=== PATIENT | male | born 1950 | race American Indian/Alaskan Native ===

== ENCOUNTER 2017-05-01 12:38 | Inpatient (IN) | payer MEDICARE ==
[2017-05-01 13:08] LABS: Basophils % (Auto) 0.6 % (0.0-1.8); Eosinophils % (Auto) 0.8 % (0.0-4.3); Mean Corpuscular HGB Conc 32 % (32-34); Mean Corpuscular Hemoglobin 28 pg (28-32); Mean Corpuscular Volume 88 fl (84-94); Platelet Count 190 K/mm3 (140-440); Red Blood Count 5.34 M/mm3 (3.65-5.03); Red Cell Distribution Width 15.6 % (13.2-15.2); White Blood Count 6.3 K/mm3 (4.5-11.0)
[2017-05-01 13:28] LABS: Anion Gap 19 mmol/L; BUN/Creatinine Ratio 11.17; Blood Urea Nitrogen 19 mg/dL (9-20); Calcium 9.4 mg/dL (8.4-10.2); Carbon Dioxide 26 mmol/L (22-30); Chloride 100.1 mmol/L (98-107); Glucose 103 mg/dL (75-100); Potassium 3.6 mmol/L (3.6-5.0); Sodium 141 mmol/L (137-145)
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
--- NOTE | 2017-05-01 14:21 | History and Physical Report ---
History of Present Illness Chief complaint: My heart was beating real fast History of present illness: 67 YO Male with HTN, Nicotine Dependence, malnutrition presents to ED for evaluation. Pt states that he has been experiencing episodes of a fast heartbeat , and pain in hes chest for the past week. Pt states that his heart bests fast and is followed by pain. Pt states that pain is 6/10, midsubsternal, but mostly localized to the left side of his chest, with associated shortness of breath. Symptoms worse with activity. No specific alleviating factors. Patient denies NVD, Fever, Chills, Prolonged travel/immobility, individual/family history of DVT/PE, calf tenderness, leg edema, hemoptysis, BRBPR, Syncope, Vertigo, skin rashes, or recent ill contacts. Past History Past Medical History: hypertension, other (nicotine dependence) Past Surgical History: Other (chest surgery) Social history: , smoking. denies: alcohol abuse, prescription drug abuse Family history: hypertension Medications and Allergies Allergies Allergy/AdvReac Type Severity Reaction Status Date / Time No Known Allergies Allergy Verified 09/17/15 14:39 Home Medications Medication Instructions Recorded Confirmed Last Taken Type amLODIPine [Norvasc] 10 mg PO QAM 10/29/14 05/01/17 Unknown History Donepezil 10 mg PO DAILY 05/01/17 05/01/17 05/01/17 History Ginkgo Biloba 120 mg PO DAILY 05/01/17 05/01/17 Unknown History Lisinopril [Zestril] 20 mg PO QDAY 05/01/17 05/01/17 Unknown History Saw Josephine Fruit [Saw Josephine] 450 mg PO DAILY 05/01/17 05/01/17 Unknown History Active Meds: Active Medications Diltiazem HCl (Cardizem/D5w 100mg/100ml) 100 mg in 100 mls @ 5 mls/hr IV TITR TIFFANY; 5 MG/HR PRN Reason: Protocol Review of Systems All systems: negative Cardiovascular: chest pain, palpitations Exam - Constitutional Vitals: Temp Pulse Resp BP Pulse Ox 97.2 F L 120 H 18 105/78 100 05/01/17 12:42 05/01/17 12:42 05/01/17 12:42 05/01/17 12:42 05/01/17 12:42 General appearance: Present: mild distress - EENT Eyes: Present: PERRL ENT: hearing intact, clear oral mucosa - Neck Neck: Present: supple, normal ROM - Respiratory Respiratory effort: normal Respiratory: bilateral: CTA - Cardiovascular Heart Sounds: Present: S1 & S2. Absent: rub, click - Extremities Extremities: pulses symmetrical, No edema Extremity abnormal: edema Peripheral Pulses: within normal limits - Abdominal General gastrointestinal: Present: soft, non-tender, non-distended, normal bowel sounds Male genitourinary: Present: normal - Integumentary Integumentary: Present: clear, warm, dry - Musculoskeletal Musculoskeletal: gait normal, strength equal bilaterally - Psychiatric Psychiatric: appropriate mood/affect, intact judgment & insight - Neurologic Neurologic: CNII-XII intact, moves all extremities Results - Labs CBC & Chem 7: 05/01/17 12:53 05/01/17 12:53 Labs: Abnormal lab results 05/01/17 05/01/17 Range/Units 12:53 12:53 RBC 5.34 H (3.65-5.03) M/mm3 Hct 47.0 H (35.5-45.6) % RDW 15.6 H (13.2-15.2) % Lymph % (Auto) 45.3 H (13.4-35.0) % [place] % (Auto) 8.8 H (0.0-7.3) % Creatinine 1.7 H (0.8-1.5) mg/dL Glucose 103 H (75-100) mg/dL Assessment and Plan - Patient Problems (1) Atrial flutter with rapid ventricular response Current Visit: Yes Status: Acute Plan to address problem: cardizem drip, heaprin drip, Cardiology team consulted. The high probability of a clinically significant, sudden or life threatening deterioration of the [cardiac, pulmonary] system(s) required my full and direct attention, intervention and personal management. The aggregate critical care time was [65] minutes. This time is in addition to time spent performing reported procedures but includes the following: [x] Data Review and interpretation [x] Patient assessment and monitoring of vital signs [x] Documentation [x] Medication orders and management (2) Nicotine dependence Current Visit: Yes Status: Acute Qualifiers: Nicotine product type: N Substance use status: S Plan to address problem: Pt counseled, supportive care, nicotine patch on request after cardiac workup complete. (3) HTN (hypertension) Current Visit: Yes Status: Acute Qualifiers: Hypertension type: H Plan to address problem: monitor bp q shift, continue current therapy (4) DVT prophylaxis Current Visit: Yes Status: Acute
[2017-05-01] MEDS ORDERED: NACL 0.9% 1000 ML 1,000 ML IV ONE (14:27)
[2017-05-01 14:57] LABS: INR 1.16 (0.87-1.13)
[2017-05-01 14:58] LABS: Partial Thromboplastin Time 26.4 Sec. (24.2-36.6)
[2017-05-01] MEDS ORDERED: CARDIZEM/D5W 100MG/100ML 100 MG/100 ML BAG IV SCH (15:00)
[2017-05-01] MEDS ORDERED: NORCO 5/325 PO ONE (15:25)
--- NOTE | 2017-05-01 16:03 | Admit Criteria Form ---
Admission Criteria Documentation: ATRIAL FIBRILLATION Clinical Indications for Admission to Inpatient Care (Place 'X' for any and all applicable criteria): Admission indicated for ANY ONE of the following(1)(2)(3)(4)(5) : [ ]I. Myocardial ischemia [ ]II. Dyspnea or hypoxemia [ ]III. Hemodynamic instability [ ]IV. Heart failure (e.g., pulmonary edema) (7) [ X]V. New-onset (less than 48 hours) atrial fibrillation with high risk for causing complications secondary to comorbidities (eg, symptomatic heart failure ) [ ]. Altered mental status [ ]VII. Syncope [ ]VIII. Patient has implantable cardioverter defibrillator that has fired more than once within past 24hr or needs immediate adjustment of settings that cannot be done other than in inpatient setting. (8) [ ]IX. Suspected accessory pathway (e.g., Jvttu-Jucuecguq-Rarwn syndrome) on ECG [ ]X. Recent systemic thromboembolism (eg, stroke) [ ]XI. Medication toxicity (e.g., digitalis) causing arrhythmia(9) [ ]XII. Underlying medical condition that necessitates inpatient care (e.g., thyrotoxicosis, pneumonia) (10) [ ]XIII. Continuous ECG monitoring is required for condition causing arrhythmia (e.g., severe hyperkalemia, hypokalemia, acid-base disturbance).(11)(12)(13) [ ]XIV. Initiation of antiarrhythmic drug therapy is needed in patient at high risk of adverse effects as indicated by ANY ONE of the following: [ ]a) Significant structural heart disease (e.g., reduced ejection fraction, congenital heart disease, valvular heart disease) [ ]b) Prolonged QT interval [ ]c) Underlying sinus node or atrioventricular conduction disturbances [ ]d) Need for treatment with antiarrhythmic drugs that have significant proarrhythmic potential (e.g., dofetilide, sotalol, procainamide) [ ]e) Patient whose sinus rhythm has never been observed on ECG [ ]XV. Intolerable symptoms despite optimal outpatient treatment [ ]XVI. Elective or urgent cardioversion that cannot be performed on outpatient basis or during observation care. [A] (Use also Atrial Fibrillation: Observation Care ) as appropriate.(14) [ ]XVII.Contraindications and/or Inappropriate clinical situations for Observational Care in patients with Atrial Fibrillation, when ANY ONE of the following is required: [ ]a) Patient with High risk of cardiac embolism (e.g, patients with previous cardiac embolism, LVEF < 40%, age >75 and patients with prosthetic valve) 18 [ ]b) Patient with Moderate risk including DM patient, CAD and patient aged 65-75 18 [ ]c) Patient with any change in cardiac biomarker especially troponin should be managed as high risk in an inpatient setting 19 [ ]d) Physician judgement irrespective of ECG and other diagnostic findings 20 [ ]XVIII.General contraindications and/or Inappropriate clinical situations for Observational Care in patients with Atrial Fibrillation, when ANY ONE of the following is required: [ ]a) Prediction of prolongation of LOS based on ANY ONE of the following may be considered as a contraindication for observational care 2, 3, 4, 5, 6, 7, 8, 9, 10, 11 [ ]i) Age > 65 yrs. [ ]ii) Patient arriving by ambulance [ ]iii) Patient with high acuity [ ]iv) Patient requiring vital sign monitoring [ ]v) Patient on IV medication [ ]b) Systolic blood pressures 180mmHg 3,12 [ ]c) Patient with altered mental status including delirium and other alteration of consciousness3 [ ]d) Patient whose discharge disposition will be to a snf home or rehabilitation home should not be managed in Emergency Department Observation Unit. CMS rule requires 3 days hospital stay before such placement.3,13 [ ]e) Patient with failure to thrive due to broad array of etiologies 3,16,17 [ ]f) Inability to ambulate 3,14 Extended stay beyond goal length of stay may be needed for (1)(25)(26): [ ]a) Unstable comorbidities [ ]b) Persistently uncontrolled atrial fibrillation or other arrhythmias [ ]c) Acute thromboembolic event (e.g., stroke, limb ischemia) [ ]d) Need for inpatient attainment of full anticoagulation The original [employer] content created by [employer] has been revised. The portions of the content which have been revised are identified through the use of italic text or in bold, and [email or web address] has neither reviewed nor approved the modified material. All other unmodified content is copyright [employer]. Please see references footnoted in the original [employer] edition 2016 Admission Criteria Met: Yes
[2017-05-01] MEDS ORDERED: SODIUM CHLORIDE FLUSH SYRINGE 10 ML IV PRN (16:15)
[2017-05-01] MEDS ORDERED: DULCOLAX PR PRN (16:16)
[2017-05-01] MEDS ORDERED: ALUM-MAG HYDROX-SIMETH 200-200-20MG/5ML PO PRN (16:16)
[2017-05-01] MEDS ORDERED: MILK OF MAGNESIA PO PRN (16:16)
[2017-05-01 17:01] LABS: Hematocrit 44.1 % (35.5-45.6); Hemoglobin 14.1 gm/dl (11.8-15.2)
[2017-05-01 17:11] LABS: INR 1.23 (0.87-1.13)
[2017-05-01] MEDS ORDERED: HEPARIN 10,000 UNITS/10 ML ONE (17:40)
[2017-05-01] MEDS ORDERED: HEPARIN/ 0.45% NACL-25,000 UNIT/500 ML 25,000 UNIT/500 ML BAG ONE (17:40)
[2017-05-01] MEDS: HEPARIN/ 0.45% NACL-25,000 UNIT/500 ML 25,000 UNIT/500 ML BAG IV SCH (17:50)
[2017-05-01 18:17] LABS: Urine Drugs of Abuse Note Disclamer
[2017-05-01] MEDS ORDERED: HEPARIN 10,000 UNITS/10 ML IV ONE (18:49)
[2017-05-01] MEDS: PERCOCET 5/325 PO PRN (20:49)
[2017-05-01 22:55] LABS: Creatine Kinase MB 3.2 ng/mL (0.0-4.0)
[2017-05-01 22:56] LABS: Creatine Kinase 253 units/L (55-170)
[2017-05-02 00:59] LABS: Creatine Kinase 241 units/L (55-170)
[2017-05-02] MEDS: PERCOCET 5/325 PO PRN ×2 (06:44→23:39)
--- NOTE | 2017-05-02 07:31 | XRay Report ---
AP CHEST: HISTORY: Shortness of breath, chest pain No significant change since 07/12/16. Previous cardiac surgery changes are noted. Normal heart size and pulmonary vascularity. The lungs remain clear. Calcified granuloma in the left upper lobe is again noted. IMPRESSION: No acute cardiopulmonary process.
[2017-05-02] MEDS: NITROSTAT SL PRN ×2 (07:45→07:50)
--- NOTE | 2017-05-02 07:48 | Progress Note ---
Assessment and Plan Assessment and plan: Patient is a 67-year-old man with a history of dementia, hypertension, tobacco dependency and BPH who presents with chest pain, palpitation and shortness of breath. He was found to have aflutter/afib with heart rate of 120Patient had a creatinine of 1.7, last creatinine was 1.1 on 07/12/2016. UDS positive for cocaine. at bedside goes to Dr. Hilda Munoz and they would like to see her. -A. fib with RVR: Wean down Cardizem drip, continue IV heparin, consulted cardiology, ?start Coumadin or newer anticoagulants, 2D echo pending, tsh normal -Acute renal failure due to vasomotor nephropathy present on admission: IV fluids as needed, monitor closely -Tobacco dependency: Advised him to stop -Cocaine abuse which may be triggering above: supportive care and counseling -Hypertension, his blood pressures on the low side slides hypotensive on Cardizem drip: Titrate down -DVT prophylaxis: Heparin drip Full code History Interval history: Patient seen and examined. Follow up on chest pain which is still present overnight uneventful. No n/v or severe headaches. Imaging, old records, testing , labs, nursing notes reviewed. Hospitalist Physical - Physical exam Narrative exam: GEN: WDWN, NAD, AWAKE, ALERT, ORIENTATED x 3 HEENT: NCAT, PERRL, EOMI, OP CLEAR NECK: SUPPLE, NO THYROMEGALY, NO JVD, NO LAD CVS: Regular irregular, NORMAL S1S2 LUNGS/CHEST: CTA B, NORMAL CHEST EXPANSION B, GOOD AIR ENTRY B ABD: SOFT, NTND, GBS, NO REBOUND OR GUARDING EXT/SKIN: NO SIGNIFICANT EDEMA OR RASH MSK: FROM X 4 EXTREMITIES NEURO: CN 2-12 GROSSLY INTACT, NO FOCAL DEFICITS PSY: Anxious - Constitutional Vitals: Temp Pulse Resp BP Pulse Ox 98.7 F 71 12 108/67 99 05/02/17 03:42 05/02/17 05:40 05/02/17 05:40 05/02/17 05:40 05/02/17 05:40 General appearance: Absent: mild distress Results - Labs CBC & Chem 7: 05/01/17 16:46 05/01/17 12:53 Labs: Laboratory Last Values WBC 6.3 K/mm3 (4.5-11.0) 05/01/17 12:53 RBC 5.34 M/mm3 (3.65-5.03) H 05/01/17 12:53 Hgb 14.1 gm/dl (11.8-15.2) 05/01/17 16:46 Hct 44.1 % (35.5-45.6) 05/01/17 16:46 MCV 88 fl (84-94) 05/01/17 12:53 MCH 28 pg (28-32) 05/01/17 12:53 MCHC 32 % (32-34) 05/01/17 12:53 RDW 15.6 % (13.2-15.2) H 05/01/17 12:53 Plt Count 158 K/mm3 (140-440) 05/01/17 16:46 Lymph % (Auto) 45.3 % (13.4-35.0) H 05/01/17 12:53 [place] % (Auto) 8.8 % (0.0-7.3) H 05/01/17 12:53 Eos % (Auto) 0.8 % (0.0-4.3) 05/01/17 12:53 Baso % (Auto) 0.6 % (0.0-1.8) 05/01/17 12:53 Lymph # 2.8 K/mm3 (1.2-5.4) 05/01/17 12:53 [place] # 0.6 K/mm3 (0.0-0.8) 05/01/17 12:53 Eos # 0.0 K/mm3 (0.0-0.4) 05/01/17 12:53 Baso # 0.0 K/mm3 (0.0-0.1) 05/01/17 12:53 Seg Neutrophils % 44.5 % (40.0-70.0) 05/01/17 12:53 Seg Neutrophils # 2.8 K/mm3 (1.8-7.7) 05/01/17 12:53 PT 15.4 Sec. (12.2-14.9) H 05/01/17 16:46 INR 1.23 (0.87-1.13) H 05/01/17 16:46 APTT 27.0 Sec. (24.2-36.6) 05/01/17 16:46 Heparin Anti-Xa Level 0.62 U.I./ml (0.3-0.7) 05/02/17 05:44 Sodium 141 mmol/L (137-145) 05/01/17 12:53 Potassium 3.6 mmol/L (3.6-5.0) 05/01/17 12:53 Chloride 100.1 mmol/L (98-107) 05/01/17 12:53 Carbon Dioxide 26 mmol/L (22-30) 05/01/17 12:53 Anion Gap 19 mmol/L 05/01/17 12:53 BUN 19 mg/dL (9-20) 05/01/17 12:53 Creatinine 1.7 mg/dL (0.8-1.5) H 05/01/17 12:53 Estimated GFR 49 ml/min 05/01/17 12:53 BUN/Creatinine Ratio 11.17 % 05/01/17 12:53 Glucose 103 mg/dL (75-100) H 05/01/17 12:53 Calcium 9.4 mg/dL (8.4-10.2) 05/01/17 12:53 Magnesium 2.00 mg/dL (1.7-2.3) 05/01/17 13:54 Total Creatine Kinase 241 units/L (55-170) H 05/02/17 00:10 CK-MB (CK-2) 3.0 ng/mL (0.0-4.0) 05/02/17 00:10 CK-MB (CK-2) Rel Index 1.2 (0-4) 05/02/17 00:10 Troponin T < 0.010 ng/mL (0.00-0.029) 05/02/17 00:10 Triglycerides 101 mg/dL (2-149) 05/01/17 16:46 Cholesterol 194 mg/dL (50-199) 05/01/17 16:46 LDL Cholesterol Direct 112 mg/dL (50-130) 05/01/17 16:46 HDL Cholesterol 62 mg/dL (40-59) H 05/01/17 16:46 Cholesterol/HDL Ratio 3.12 % 05/01/17 16:46 TSH 0.415 mlU/mL (0.270-4.200) 05/01/17 16:46 Free T4 1.13 ng/dL (0.76-1.46) 05/01/17 16:46 Urine Opiates Screen Presumptive negative 05/01/17 18:10 Urine Methadone Screen Presumptive negative 05/01/17 18:10 Ur Barbiturates Screen Presumptive negative 05/01/17 18:10 Ur Phencyclidine Scrn Presumptive negative 05/01/17 18:10 Ur Amphetamines Screen Presumptive negative 05/01/17 18:10 U Benzodiazepines Scrn Presumptive negative 05/01/17 18:10 Urine Cocaine Screen Presumptive positive 05/01/17 18:10 U Marijuana (THC) Screen Presumptive negative 05/01/17 18:10 Drugs of Abuse Note Disclamer 05/01/17 18:10
[2017-05-02] MEDS: MORPHINE IV PRN ×2 (07:50→15:45)
--- NOTE | 2017-05-02 12:13 | Consultation ---
History of Present Illness Consult date: 05/02/17 Reason for consult: dyspnea, chest pain, other (abnormal drug panel) History of present illness: 67-year-old -Swiss male, that we are seeing at the ICU for evaluation after he presented to the ED with chest pain and dyspnea. The patient states that he has been feeling a diffuse precordial pain associated with palpitation sensation that her past days. He denies any syncope, dyspnea upon exertion, hemoptysis, wheezing or active expectoration. Is a nonsmoker smoking half to 1 pack serous per day. GI cycle or drug use, family at the bedside. Initial chest x-ray failed to show any findings with no acute other pulmonary disease noted on report. EKG showed atrial flutter with fast ventricular rate and he was started on Cardizem drip. A toxicology panel was performed results noted as positive for cocaine Laboratory Tests 05/01/17 18:10 Urine Opiates Screen Presumptive negative Urine Methadone Screen Presumptive negative Ur Barbiturates Screen Presumptive negative Ur Phencyclidine Scrn Presumptive negative Ur Amphetamines Screen Presumptive negative U Benzodiazepines Scrn Presumptive negative Urine Cocaine Screen Presumptive positive U Marijuana (THC) Screen Presumptive negative Past History Past Medical History: hypertension, other (nicotine dependence) Past Surgical History: Other (chest surgery) Social history: , smoking. denies: alcohol abuse, prescription drug abuse Family history: hypertension Medications and Allergies Allergies Allergy/AdvReac Type Severity Reaction Status Date / Time No Known Allergies Allergy Verified 09/17/15 14:39 Home Medications Medication Instructions Recorded Confirmed Last Taken Type amLODIPine [Norvasc] 10 mg PO QAM 10/29/14 05/01/17 Unknown History Donepezil 10 mg PO DAILY 05/01/17 05/01/17 05/01/17 History Ginkgo Biloba 120 mg PO DAILY 05/01/17 05/01/17 Unknown History Lisinopril [Zestril] 20 mg PO QDAY 05/01/17 05/01/17 Unknown History Saw [place] Fruit [Saw Raleigh] 450 mg PO DAILY 05/01/17 05/01/17 Unknown History Active Meds: Active Medications Al Hydrox/Mg Hydrox/Simethicone (Alum-Mag Hydrox-Simeth [phone]/5ml) 30 ml PO Q4H PRN PRN Reason: Indigestion Bisacodyl (Dulcolax) 10 mg MI QDAY PRN PRN Reason: constipation unrelieved by MOM Diltiazem HCl (Cardizem/D5w 100mg/100ml) 100 mg in 100 mls @ 5 mls/hr IV TITR TIFFANY; 5 MG/HR PRN Reason: Protocol Heparin Sodium/Sodium Chloride (Heparin/ 0.45% Nacl-25,000 Unit/500 Ml) 25,000 unit in 500 mls @ 21 mls/hr IV TITR TIFFANY; 1,050 UNITS/HR PRN Reason: Protocol Last Titration: 05/02/17 01:10 Dose: 1,000 units/hr, 20 mls/hr Isosorbide Mononitrate (Imdur) 30 mg PO QDAY TIFFANY Magnesium Hydroxide (Milk Of Magnesia) 30 ml PO Q4H PRN PRN Reason: Constipation Morphine Sulfate (Morphine) 2 mg IV Q4H PRN PRN Reason: Pain , Severe (7-10) Last Admin: 05/02/17 07:50 Dose: 2 mg Nitroglycerin (Nitrostat) 0.4 mg SL .Q5MIN PRN PRN Reason: Chest Pain Last Admin: 05/02/17 07:50 Dose: 0.4 mg Oxycodone/Acetaminophen (Percocet 5/325) 1 tab PO Q6H PRN PRN Reason: Pain, Moderate (4-6) Last Admin: 05/02/17 06:44 Dose: 1 tab Sodium Chloride (Sodium Chloride Flush Syringe 10 Ml) 10 ml IV PRN PRN PRN Reason: LINE FLUSH Review of Systems Cardiovascular: chest pain, palpitations, rapid/irregular heart beat, shortness of breath Respiratory: no cough, no cough with sputum, no excessive sputum, no hemoptysis Gastrointestinal: no abdominal pain, no nausea, no vomiting, no diarrhea, no constipation Neurological: no head injury, no transient paralysis, no paralysis, no weakness , no parathesias Hematologic/Lymphatic: no easy bruising, no easy bleeding, no lymphadenopathy, no lymphedema Physical Examination Vital signs: Vital Signs Temp Pulse Resp BP Pulse Ox 97.2 F L 120 H 18 105/78 100 05/01/17 12:42 05/01/17 12:42 05/01/17 12:42 05/01/17 12:42 05/01/17 12:42 General appearance: no acute distress, alert Eyes: non-icteric ENT: oropharynx moist Neck: supple, no lymphadenopathy, no JVD Ascultation: Bilateral: clear, diminished breath sounds Percussion: Bilateral: not dull Cardiovascular: irregular rhythm, other (flutter rhythm noted on monitor) Integumentary: normal Extremities: no cyanosis, no edema Musculoskeletal: no deformities normal mental status, non-focal exam, CN II-XII normal Results - Laboratory Findings CBC and BMP: 05/01/17 16:46 05/01/17 12:53 PT/INR, D-dimer PT 15.4 Sec. (12.2-14.9) H 05/01/17 16:46 INR 1.23 (0.87-1.13) H 05/01/17 16:46 Abnormal lab findings: Abnormal Labs 05/01/17 05/02/17 19:15 00:10 Total Creatine Kinase 253 H 241 H - Diagnostic Findings Chest x-ray: report reviewed Assessment and Plan Chest pain. Non-STEMI Atrial flutter with fast ventricular response Suspected cocaine abuse. Recommendations Continue oxygen support Avoid smoking Cardiology evaluation, risk stratification anticoagulation therapy Continue Cardizem switched to by mouth per cardiology accommodations We need to advise patient regarding drug use DVT prophylaxis Thanks
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
[2017-05-02] MEDS: IMDUR PO SCH (13:14)
[2017-05-02] MEDS: NACL 0.9% 1000 ML 1,000 ML IV SCH (15:28)
[2017-05-02] MEDS: HEPARIN/ 0.45% NACL-25,000 UNIT/500 ML 25,000 UNIT/500 ML BAG IV SCH (15:29)
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
[2017-05-03 05:20] LABS: Hematocrit 38.1 % (35.5-45.6); Hemoglobin 12.1 gm/dl (11.8-15.2); Mean Corpuscular HGB Conc 32 % (32-34); Mean Corpuscular Hemoglobin 28 pg (28-32); Mean Corpuscular Volume 87 fl (84-94); Platelet Count 134 K/mm3 (140-440); Red Blood Count 4.36 M/mm3 (3.65-5.03); Red Cell Distribution Width 15.1 % (13.2-15.2); White Blood Count 5.5 K/mm3 (4.5-11.0)
[2017-05-03] MEDS: PERCOCET 5/325 PO PRN ×2 (05:24→16:58)
[2017-05-03] MEDS: NACL 0.9% 1000 ML 1,000 ML IV SCH (05:24)
[2017-05-03 05:28] LABS: INR 1.21 (0.87-1.13)
[2017-05-03 05:34] LABS: Anion Gap 13 mmol/L; BUN/Creatinine Ratio 14.54; Blood Urea Nitrogen 16 mg/dL (9-20); Calcium 8.6 mg/dL (8.4-10.2); Carbon Dioxide 27 mmol/L (22-30); Chloride 104.6 mmol/L (98-107); Glucose 75 mg/dL (75-100); Potassium 3.8 mmol/L (3.6-5.0); Sodium 141 mmol/L (137-145)
[2017-05-03] MEDS ORDERED: LEXISCAN IV ONE ×2 (08:58→09:01)
[2017-05-03] MEDS: IMDUR PO SCH (10:24)
--- NOTE | 2017-05-03 12:20 | Progress Note ---
Assessment and Plan Chest pain. Currently under CAD evaluation, myocardial perfusion scan done. Results are pending Non-STEMI Atrial flutter with fast ventricular response Suspected cocaine abuse. COPD Recommendations Continue oxygen support Avoid smoking Cardiology evaluation, risk stratification anticoagulation therapy Continue Cardizem switched to by mouth per cardiology accommodations We need to advise patient regarding drug use Albuterol nebulizations every 4-6 hours if wheezing or respiratory complaints noted. Chest clear the present time. Will need further evaluation for COPD but this can be completed as an outpatient DVT prophylaxis Thanks Subjective Date of service: 05/03/17 Principal diagnosis: angina, non-STEMI cocaine abuse Interval history: Reports some chest discomfort for no pain. Denies cough wheezing or active expectoration. Objective Vital Signs - 12hr 05/03/17 05/03/17 05/03/17 01:25 04:05 07:19 Temperature 98.2 F 98.3 F 97.6 F Pulse Rate Pulse Rate [ 78 59 L Left] Pulse Rate [ 75 Right Radial] Respiratory 20 20 20 Rate Blood Pressure 115/73 98/53 Blood Pressure 130/80 [Right Arm] O2 Sat by Pulse 98 98 98 Oximetry 05/03/17 05/03/17 10:24 10:54 Temperature 97.7 F Pulse Rate 76 Pulse Rate [ Left] Pulse Rate [ 81 Right Radial] Respiratory 20 Rate Blood Pressure 112/64 Blood Pressure 136/76 [Right Arm] O2 Sat by Pulse 96 Oximetry Constitutional: no acute distress, alert, other (somewhat restless) Eyes: non-icteric ENT: oropharynx moist Neck: supple, no lymphadenopathy, no JVD Ascultation: Bilateral: clear, diminished breath sounds Percussion: Bilateral: not dull Cardiovascular: irregular rhythm Integumentary: normal Extremities: no cyanosis, no edema Neurologic: normal mental status, non-focal exam, CN II-XII normal CBC and BMP: 05/03/17 04:44 05/03/17 04:44 ABG, PT/INR, D-dimer: PT/INR, D-dimer PT 15.2 Sec. (12.2-14.9) H 05/03/17 04:44 INR 1.21 (0.87-1.13) H 05/03/17 04:44 Abnormal lab findings: Abnormal Labs 05/01/17 05/02/17 05/03/17 19:15 00:10 04:44 Plt Count 134 L PT INR Total Creatine Kinase 253 H 241 H 05/03/17 04:44 Plt Count PT 15.2 H INR 1.21 H Total Creatine Kinase
[2017-05-03] MEDS ORDERED: PROVENTIL IH PRN (13:16)
[2017-05-03] MEDS: MORPHINE IV PRN (13:21)
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
[2017-05-03 17:42] VITALS: BP 149/84
[2017-05-03] MEDS ORDERED: ELIQUIS PO SCH (22:00)
--- NOTE | 2017-05-03 23:26 | Treadmill Report ---
NUCLEAR CARDIAC IMAGING INDICATION FOR PROCEDURE: Chest pain. Informed consent was obtained. DESCRIPTION OF PROCEDURE: Resting nuclear cardiac images were performed approximately 45 to 60 minutes following the intravenous administration of 10 mCi of technetium-99m Myoview. Vasodilator stress was achieved with intravenous Lexiscan 0.4 mg per protocol. Subsequently, stress myocardial perfusion imaging was performed 30 to 45 minutes following the intravenous administration of 28 mCi of technetium-99m Myoview. Images were obtained in a 180-degree arc from 45 degrees, LPO to 45 degrees [id number]. After data acquisition, the images were processed and reoriented into the vertical long, horizontal long, and horizontal short axis projections. A polar color map of the horizontal short axis slices was generated and reviewed. The rotating planar images reviewed in cinematic format on the computer console. Gated SPECT imaging demonstrates a post-stress left ventricular ejection fraction of 56% with normal wall motion. Myocardial perfusion imaging demonstrates no significant cavity change between stress and rest. No significant stress induced perfusion defects are seen. Nuclear cardiac imaging demonstrates grossly normal left ventricular systolic function with no significant evidence for myocardial ischemia or necrosis. [facility]# [id number] ANNE/AUDELIA
[2017-05-04] MEDS ORDERED: TOPROL XL PO SCH (10:00)
== END 2017-05-03 18:50 | disposition home or self-care (01) | DRG 391 ==
LOC: ED 12:38 → CC1 18:03 → 4A 05-02 23:33
PROVIDERS: ADMIT Internal Medicine; ATTEND Internal Medicine
DX: K21.9 Gastro-esophageal reflux disease without esophagitis (principal); N17.0 Acute kidney failure with tubular necrosis; I48.92 Unspecified atrial flutter; E46 Unspecified protein-calorie malnutrition; F17.200 Nicotine dependence, unspecified, uncomplicated; I10 Essential (primary) hypertension; F03.90 Unspecified dementia, unspecified severity, without behavioral disturbance, psychotic disturbance, mood disturbance, and anxiety; F14.10 Cocaine abuse, uncomplicated; N40.0 Benign prostatic hyperplasia without lower urinary tract symptoms; I48.91 Unspecified atrial fibrillation; Z72.89 Other problems related to lifestyle; Z68.21 Body mass index [BMI] 21.0-21.9, adult; Z82.49 Family history of ischemic heart disease and other diseases of the circulatory system; Z71.6 Tobacco abuse counseling
CPT/HCPCS: 36415; 71010; 78452; 80048; 80061; 80307; 82550; 82553; 83735; 84439; 84443; 84484; 85014; 85018; 85025; 85027; 85049; 85520; 85610; 85730; 93005; 93010; 93017; 93306; 94760; A9502; J1644; J2270; J2785; J7030

== ENCOUNTER 2017-06-07 22:25 | Inpatient (IN) | payer MEDICARE ==
[2017-06-07] MEDS ORDERED: NACL 0.9% 1000 ML 1,000 ML ONE (22:57)
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
[2017-06-07 23:12] LABS: Eosinophils % (Auto) 0.9 % (0.0-4.3); Hematocrit 41.6 % (35.5-45.6); Hemoglobin 13.2 gm/dl (11.8-15.2); Mean Corpuscular HGB Conc 32 % (32-34); Mean Corpuscular Hemoglobin 28 pg (28-32); Mean Corpuscular Volume 89 fl (84-94); Platelet Count 152 K/mm3 (140-440); Red Blood Count 4.69 M/mm3 (3.65-5.03)
[2017-06-07 23:25] LABS: Alanine Aminotransferase 36 units/L (7-56); Albumin 3.9 g/dL (3.9-5); Albumin/Globulin Ratio 1.4 %; Alkaline Phosphatase 103 units/L (35-129); Anion Gap 20 mmol/L; BUN/Creatinine Ratio 10.71; Blood Urea Nitrogen 15 mg/dL (9-20); Calcium 9.6 mg/dL (8.4-10.2); Carbon Dioxide 26 mmol/L (22-30); Chloride 100.5 mmol/L (98-107); Glucose 82 mg/dL (75-100); Potassium 4.1 mmol/L (3.6-5.0); Sodium 142 mmol/L (137-145); Total Protein 6.6 g/dL (6.3-8.2)
[2017-06-07] MEDS ORDERED: CARDIZEM/D5W 100MG/100ML 100 MG/100 ML BAG IV ONE ×2 (23:29→23:33)
[2017-06-07] MEDS: NACL 0.9% 1000 ML 1,000 ML IV SCH (23:39)
[2017-06-07] MEDS ORDERED: NACL 0.9% 1000 ML 1,000 ML IV SCH (23:45)
[2017-06-08] MEDS ORDERED: BABY ASPIRIN PO ONE (00:14)
[2017-06-08] MEDS ORDERED: ZOFRAN IV PRN (00:25)
[2017-06-08] MEDS ORDERED: TYLENOL PO PRN (00:25)
[2017-06-08] MEDS ORDERED: MILK OF MAGNESIA PO PRN (00:25)
[2017-06-08] MEDS ORDERED: DULCOLAX PR PRN (00:25)
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
[2017-06-08 01:13] LABS: Creatine Kinase 70 units/L (55-170); Creatine Kinase MB 1.4 ng/mL (0.0-4.0)
[2017-06-08] MEDS: MORPHINE IV PRN ×3 (02:49→12:08)
[2017-06-08 05:19] LABS: Creatine Kinase MB 1.6 ng/mL (0.0-4.0)
[2017-06-08 05:21] LABS: Creatine Kinase 68 units/L (55-170)
--- NOTE | 2017-06-08 07:13 | XRay Report ---
AP CHEST: HISTORY: chest pain Previous CABG changes are suspected. Heart size has increased slightly since 05/01/17. There is borderline cardiomegaly. Normal pulmonary vascularity. The lungs are clear. No acute bony abnormality is appreciated. IMPRESSION: Borderline to mild cardiomegaly. Lungs clear.
--- NOTE | 2017-06-08 07:40 | Admit Criteria Form ---
Admission Criteria Documentation: SUPRAVENTRICULAR ARRHYTHMIAS Clinical Indications for Admission to Inpatient Care (Place 'X' for any and all applicable criteria): Admission is indicated by ANY ONE of the following (1)(2): [X]I. Arrhythmia causing significant symptoms or findings as indicated by ANY ONE of the following: [X ]a) Chest pain [ ]b) Myocardial ischemia [ ]c) Altered mental status [ ]d) Dizziness, weakness, or light-headedness [X ]e) Dyspnea or hypoxemia [ ]f) Heart failure (eg, pulmonary edema)(11) [ ]II. Initiation of antiarrhythmic drug therapy is needed in patient at high risk of adverse events as indicated by ANY ONE of the following: [ ]a) Significant structural heart disease (eg, aortic stenosis, reduced ejection fraction, cardiomyopathy, congenital heart disease) [ ]b) Underlying sinus node or atrioventricular conduction disturbances [ ]c) Prolonged QT interval [ ]d) Need for treatment with antiarrhythmic that have significant proarrhythmic potential ( procainamide) [ ]e) Patient whose sinus rhythm has not been observed on ECG [ ]III. Inpatient admission required rather than observation care because of ANY ONE of the following: [ ]a) Syncope [ ]b) Patient has automatic implanted cardioverter-defibrillator that is repeatedly firing, malfunctioning, or in need of immediate adjustment of settings beyond scope of ambulatory or observation care. [ ]c) Hemodynamic instability that is severe or persistent [ ]d) Unstable cardiac conduction defects indicated by ANY ONE of the following(19)(20)(21): [ ]a) Type II second-degree atrioventricular block [ ]b) Third-degree atrioventricular block [ ]C) New-onset left bundle branch block with suspected myocardial ischemia [ ]e) Severe electrolyte abnormalities requiring inpatient care [ ]f) Continuous intravenous infusion of anticoagulation, platelet inhibitor, vasoactive, or antiarrhythmic medication(14) [ ]g) Pulmonary artery catheter monitoring [ ]h) Repeat cardioversion necessary [ ]i) Other condition, treatment or monitoring requiring inpatient admission [ ]IV. Underlying medical condition that necessitates inpatient care (eg, thyrotoxicosis, severe acidosis) Extended stay beyond goal length of stay may be needed for(1)(17)(18): [ ]a) Persistent hemodynamic instability or continued severe arrhythmia [ ]b) Continued monitoring during initiation of certain medications (eg, some antiarrhythmics)(17)(19) [ ]c) Precipitating cause requires ongoing inpatient care (eg, severe electrolyte abnormality, systemic infection, acidosis) [ ]d) Unstable comorbidities The original [facility] content created by [facility] has been revised. The portions of the content which have been revised are identified through the use of italic text or in bold, and [facility] has neither reviewed nor approved the modified material. All other unmodified content is copyright [facility]. Please see references footnoted in the original [facility] edition 2016 Admission Criteria Met: Yes
[2017-06-08] MEDS ORDERED: LOPRESSOR PO SCH (09:00)
[2017-06-08] MEDS: LOPRESSOR PO SCH ×2 (10:18→22:49)
[2017-06-08] MEDS: ARICEPT PO SCH (10:27)
[2017-06-08] MEDS: ELIQUIS PO SCH ×2 (10:27→22:50)
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
[2017-06-08 17:09] LABS: Urine Drugs of Abuse Note Disclamer
[2017-06-09] MEDS: NACL 0.9% 1000 ML 1,000 ML IV SCH (02:57)
[2017-06-09 05:40] LABS: Basophils % (Auto) 0.4 % (0.0-1.8); Eosinophils % (Auto) 2.2 % (0.0-4.3); Hemoglobin 13.1 gm/dl (11.8-15.2); Mean Corpuscular HGB Conc 33 % (32-34); Mean Corpuscular Hemoglobin 29 pg (28-32); Mean Corpuscular Volume 89 fl (84-94); Platelet Count 143 K/mm3 (140-440); Red Blood Count 4.51 M/mm3 (3.65-5.03); Red Cell Distribution Width 15.9 % (13.2-15.2); White Blood Count 5.7 K/mm3 (4.5-11.0)
[2017-06-09 06:05] LABS: Anion Gap 18 mmol/L; BUN/Creatinine Ratio 11.81; Blood Urea Nitrogen 13 mg/dL (9-20); Calcium 9.3 mg/dL (8.4-10.2); Carbon Dioxide 26 mmol/L (22-30); Chloride 102.5 mmol/L (98-107); Glucose 87 mg/dL (75-100); Potassium 5.2 mmol/L (3.6-5.0); Sodium 141 mmol/L (137-145)
[2017-06-09 08:57] VITALS: BP 153/87
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
[2017-06-09] MEDS: ARICEPT PO SCH (11:37)
[2017-06-09] MEDS: ELIQUIS PO SCH (11:37)
[2017-06-09] MEDS: LOPRESSOR PO SCH (11:38)
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
--- NOTE | 2017-06-09 15:25 | Event Note ---
Date: 06/09/17 EP consultation noted. Currently stable cardiac status. Pt may discharge from cardiology standpoint. Cont present cardiac regimen. Follow up in our [place] office with Dr. Munoz on 06/17/2017 @ 2:00PM. Follow up in our [place] office with Dr. Martins on 06/22/2017 @ 3:00PM. Pt's given appointment info. Gordon DELCID NP / DR. MARTINS
--- NOTE | 2017-06-09 15:34 | Discharge Summary ---
Providers - Providers Date of Admission: 06/08/17 00:25 Attending physician: JALIL CABEZAS MD 06/09/17 09:53 Consult to Physician [CONS] Routine Consulting Provider: TASHI MARTINS Reason For Exam: A flutter, ?may need ablation? Place consult to:: DR. MARTINS Notified:: DR. MARTINS Comment:: UNABLE TO REACH [phone]/DR. MARTINS MAKING ROUNDS AND SAW PATIENT Primary care physician: MARBLE CHIP TERRAZZO WORKER Hospitalization Condition: Stable Hospital course: 67-year-old man with a history of hypertension, history of cocaine abuse A. fib , dementia comes emergency room complaining of palpitation and chest pain, he admitted to 3 syncopal episodes in the past month but did not have syncope on this admission . He was found to be in A. fib with RVR he received Cardizem drip was then transitioned to oral metoprolol. His heart rate was better controlled. He is continued on eliquis for stroke prophylaxis. He have episodes of atrial flutter. Therefore electrophysiology consult was placed. He 's to follow-up with Dr. Munoz for EP study for possible ablation in 2 weeks. He was seen in conjunction with cardiology and EP, his heart rate was well controlled at time of discharge. Urine history of cocaine abuse, UDS was checked and was negative for cocaine. Diagnoses Wide complex tachycardia A. fib Hypertension Senile Dementia, mild; forgetful Coagulopathy due to eliquis Disposition: DC-01 TO HOME OR SELFCARE Time spent for discharge: 33 minutes Core Measure Documentation - Palliative Care Palliative Care/ Comfort Measures: Not Applicable - Core Measures Any of the following diagnoses?: none Exam - Constitutional Vitals: Temp Pulse Resp BP Pulse Ox 97.8 F 68 18 153/87 95 06/09/17 08:56 06/09/17 08:56 06/09/17 08:56 06/09/17 08:56 06/09/17 08:56 General appearance: Present: no acute distress, well-nourished - EENT Eyes: Present: PERRL ENT: hearing intact, clear oral mucosa - Neck Neck: Present: supple, normal ROM - Respiratory Respiratory effort: normal Respiratory: bilateral: CTA - Cardiovascular Heart Sounds: Present: S1 & S2. Absent: rub, click - Extremities Extremities: pulses symmetrical, No edema Peripheral Pulses: within normal limits - Abdominal General gastrointestinal: Present: soft, non-tender, non-distended, normal bowel sounds Male genitourinary: Present: normal - Integumentary Integumentary: Present: clear, warm, dry - Musculoskeletal Musculoskeletal: gait normal, strength equal bilaterally - Psychiatric Psychiatric: appropriate mood/affect, intact judgment & insight - Neurologic Neurologic: CNII-XII intact, moves all extremities, other Plan Follow up with: PRIMARY CARE, [Primary Care Provider] - 3-5 Days Prescriptions: Apixaban [Eliquis] 5 mg PO Q12HR #60 tablet ISOSORBIDE MONOnitrate [Imdur ER] 30 mg PO QDAY #30 tablet Metoprolol [Lopressor TAB] 50 mg PO BID #60 tablet
== END 2017-06-09 17:33 | disposition home or self-care (01) | DRG 310 ==
LOC: ED 22:25 → CC1 06-08 00:25 → 4A 06-08 09:52
PROVIDERS: ADMIT Internal Medicine; ATTEND Internal Medicine
DX: I48.92 Unspecified atrial flutter (principal); I48.91 Unspecified atrial fibrillation; I10 Essential (primary) hypertension; F03.90 Unspecified dementia, unspecified severity, without behavioral disturbance, psychotic disturbance, mood disturbance, and anxiety; F17.210 Nicotine dependence, cigarettes, uncomplicated; T45.515A Adverse effect of anticoagulants, initial encounter; E78.5 Hyperlipidemia, unspecified; Z82.49 Family history of ischemic heart disease and other diseases of the circulatory system; Y92.89 Other specified places as the place of occurrence of the external cause; Z79.899 Other long term (current) drug therapy; Z87.828 Personal history of other (healed) physical injury and trauma
CPT/HCPCS: 36415; 71010; 80048; 80053; 80307; 82550; 82553; 83735; 83880; 84443; 84484; 85025; 93005; 93010; 99406; J0153; J2270; J7030

== ENCOUNTER 2017-07-04 21:13 | Inpatient (IN) | payer MEDICARE ==
[2017-07-04] MEDS ORDERED: NACL 0.9% 1000 ML 1,000 ML IV ONE (21:58)
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
[2017-07-04 22:41] LABS: Basophils % (Auto) 0.2 % (0.0-1.8); Eosinophils % (Auto) 1.3 % (0.0-4.3); Hematocrit 45.7 % (35.5-45.6); Hemoglobin 14.7 gm/dl (11.8-15.2); Mean Corpuscular HGB Conc 32 % (32-34); Mean Corpuscular Hemoglobin 28 pg (28-32); Mean Corpuscular Volume 88 fl (84-94); Platelet Count 150 K/mm3 (140-440); Red Blood Count 5.22 M/mm3 (3.65-5.03); Red Cell Distribution Width 15.1 % (13.2-15.2); White Blood Count 7.8 K/mm3 (4.5-11.0)
[2017-07-04 22:52] LABS: INR 1.23 (0.87-1.13)
[2017-07-04 22:53] LABS: Partial Thromboplastin Time 27.5 Sec. (24.2-36.6)
[2017-07-04] MEDS: ASPIRIN PO SCH (22:53)
[2017-07-04 23:05] LABS: Alanine Aminotransferase 39 units/L (7-56); Albumin 4.3 g/dL (3.9-5); Albumin/Globulin Ratio 1.6 %; Alkaline Phosphatase 130 units/L (35-129); Anion Gap 22 mmol/L; BUN/Creatinine Ratio 9.16; Blood Urea Nitrogen 11 mg/dL (9-20); Calcium 9.9 mg/dL (8.4-10.2); Carbon Dioxide 25 mmol/L (22-30); Chloride 100.9 mmol/L (98-107); Glucose 95 mg/dL (75-100); Potassium 4.3 mmol/L (3.6-5.0); Sodium 144 mmol/L (137-145)
[2017-07-04 23:06] LABS: Creatine Kinase 116 units/L (55-170)
[2017-07-04 23:21] LABS: Urine Drugs of Abuse Note Disclamer
[2017-07-04] MEDS ORDERED: DULCOLAX PR PRN (23:34)
[2017-07-04] MEDS ORDERED: MILK OF MAGNESIA PO PRN (23:34)
[2017-07-04] MEDS ORDERED: ZOFRAN IV PRN (23:34)
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
[2017-07-05 00:09] LABS: Bacteria,Urine 1+ /HPF (Negative); Bilirubin,Urine NEG (Negative); Blood,Urine SM (Negative); Ketones,Urine NEG (Negative); Leukocyte Esterase,Urine TR (Negative); Mucus,Urine FEW /HPF; Nitrite,Urine NEG (Negative); Urobilinogen,Urine < 2.0 mg/dL (<2.0)
[2017-07-05 00:43] LABS: Creatine Kinase MB 1.9 ng/mL (0.0-4.0)
[2017-07-05 00:44] LABS: Creatine Kinase 127 units/L (55-170)
[2017-07-05 05:59] LABS: Basophils % (Auto) 0.3 % (0.0-1.8); Eosinophils % (Auto) 0.3 % (0.0-4.3); Hematocrit 43.4 % (35.5-45.6); Hemoglobin 13.9 gm/dl (11.8-15.2); Mean Corpuscular HGB Conc 32 % (32-34); Mean Corpuscular Hemoglobin 28 pg (28-32); Mean Corpuscular Volume 88 fl (84-94); Platelet Count 148 K/mm3 (140-440); Red Blood Count 4.96 M/mm3 (3.65-5.03); Red Cell Distribution Width 15.3 % (13.2-15.2)
[2017-07-05 06:16] LABS: Creatine Kinase MB 2.4 ng/mL (0.0-4.0)
[2017-07-05 06:22] LABS: Anion Gap 20 mmol/L; BUN/Creatinine Ratio 9.09; Blood Urea Nitrogen 10 mg/dL (9-20); Calcium 9.4 mg/dL (8.4-10.2); Carbon Dioxide 24 mmol/L (22-30); Chloride 104.1 mmol/L (98-107); Glucose 89 mg/dL (75-100); Potassium 4.4 mmol/L (3.6-5.0); Sodium 144 mmol/L (137-145)
[2017-07-05 06:24] LABS: Creatine Kinase 155 units/L (55-170)
--- NOTE | 2017-07-05 08:30 | XRay Report ---
PORTABLE CHEST INDICATION: Chest pain. COMPARISON: 06/07/2017 FINDINGS: Portable, frontal chest radiograph demonstrates stable cardiomediastinal silhouette, sternotomy wires, mild aortic knob calcifications, clear lungs, EKG leads and intact bones. Right shoulder stay sutures. Calcific tendinosis of the right shoulder also not entirely excluded. CONCLUSION: Stable borderline cardiomegaly without acute chest process, as described. Thank you for the opportunity to participate in this patient's care.
--- NOTE | 2017-07-05 08:47 | Admit Criteria Form ---
Admission Criteria Documentation: TELEMETRY CARE Telemetry Admission Guidelines (Place 'X' for any and all applicable criteria): Admission to telemetry [A] may be indicated for ANY ONE of the following(1)(2)(3 )(4)(5): [X ]I. Cardiac disease, including ANY ONE of the following (9)(10)(11)(12)( 13): [ ]a) Postacute NJ [ ]b) Low-risk patients with ST-segment elevation NJ who have undergone successful percutaneous coronary intervention [ ]c) Unstable angina [ ]d) Suspected NJ (until it is ruled out) [ ]e) Post cardiac surgery (first 48 to 72 hours unless complications occur) [ X]f) Acute arrhythmias (including significant tachycardia or bradycardia) [B] [ ]g) Firing of an implantable cardioverter defibrillator [C] [ ]h) Suspected pacemaker or implantable cardioverter defibrillator malfunction (10) [ ]i) New administration or adjustment of an antiarrhythmic drug [D ] [ ]j) Child admitted for acute congestive heart failure [ ]j) Long QT syndrome [ ]k) Advanced heart block (eg, second-degree Mobitz type II, third- degree heart block) [ ]l) Acute myocarditis or pericarditis [ ]m) Short-term (ambulatory or inpatient) monitoring after a cardiac procedure as indicated by ANY ONE of the following [E]: [ ]i) Electrophysiologic studies [ ]ii) Percutaneous coronary intervention with stent placement [ ]iii) Pacemaker placement with cardiac conduction defect [ ]iv) Implantable cardiac defibrillator placement [ ]II. Drug overdose or poisoning with substance that causes arrhythmias or QT prolongation (eg, phenothiazines, sympathomimetic agents, cyclic antidepressants, digitalis, antiarrhythmic drugs)(15) [ ]III. Short-term (ambulatory or inpatient) monitoring after therapeutic or diagnostic procedure requiring conscious sedation or anesthesia (eg, endoscopy, elective cardioversion) [ ]IV. Acute cerebrovascular even[F](18) [ ]V. Massive blood transfusion (eg, at least 10 units of packed red blood cells in 24 hours) [ ]. Variceal bleeding after endoscopy, sclerotherapy, or IV vasopressin [ ]VII. Uncorrected electrolyte abnormalities associated with an increased risk of dangerous arrhythmia [G]; examples include [ ]a) Hyperkalemia with attributable ECG changes [ ]b) Potassium greater than 6.5 mmol/L (mEq/L) in a patient without history of chronic renal disease [ ]c) Prolonged QT attributed to hypokalemia, hypomagnesemia, or hypocalcemia [ ]VIII.Unexplained syncope or other neurologic event suspected of being due to arrhythmia due to a finding that increases risk; examples include(19)(20)(21): [ ]a) High-risk ECG findings (eg, bifascicular block, bradycardia, abnormal QT interval, ventricular pre- excitation) [ ]b) History of previous syncope due to arrhythmia [ ]c) Abnormal ventricular function (eg, reduced ejection fraction ) [ ]d) Exertional or supine syncope [ ]e) Concerning syncope characteristics (eg, sudden loss of consciousness without prodrome) [ ]f) Family history of sudden [ ]g) Use of arrhythmogenic medication [ ]h) Suspected cardiac ischemia [ ]i) Known channelopathy (eg, long QT syndrome, Brugada syndrome, or catecholaminergic paroxysmal ventricular tachycardia) [ ]j) Known structural heart disease (eg, hypertrophic cardiomyopathy , severe valvular disease) [ ]k) Palpitations preceding syncope The original [employer] content created by [employer] has been revised. The portions of the content which have been revised are identified through the use of italic text or in bold, and [facility] has neither reviewed nor approved the modified material. All other unmodified content is copyright [employer]. Please see references footnoted in the original [employer] edition 2016 Admission Criteria Met: Yes
[2017-07-05] MEDS ORDERED: APRESOLINE IV PRN (09:13)
--- NOTE | 2017-07-05 09:16 | Progress Note ---
Assessment and Plan Assessment and plan: 67-year-old man with a history of hypertension, A. fib, dementia was brought to the emergency room because of palpitations and associated with chest pain. In the emergency room was found to be in SVT SVT/Afib with RVR Still tachycardic, will start on low-dose metoprolol. Obtain echocardiogram. weston vasc score is 2. start on lovenox for cva ppx, cardiology consult appreciated Patient has had a long history of paroxysmal atrial fibrillation, and he is planned for EP study and ablation on 07/07/2017 at [facility], the plan is to stabilize the patient that he can keep this appointment. Therefore eliquis on hold for procedure HTN urgency Optimize medications Dementia Supportive care DVT prophylaxis Full anticoagulated History Interval history: he had an episode of tachycardia this am to 220, code met was called, he received Lopressor after which he went back to , he had chest pain and palpitation at that time, but it is all resolved now. Hospitalist Physical - Physical exam Narrative exam: General: Patient appears well in no distress HEENT: MMM, EOMI cardiac: S1-S2 heard lungs: clear to auscultation, abdomen: soft, nontender, nondistended bowel sounds positive extremities: no edema clubbing or cyanosis Skin: no rash or lesion Neuro: no focal deficit Psych: appropriate behavior and mood, cognitive impairments - Constitutional Vitals: Temp Pulse Resp BP Pulse Ox 100 H 17 171/110 98 07/05/17 03:59 07/05/17 00:51 07/05/17 00:51 07/05/17 04:37 Results - Labs CBC & Chem 7: 07/05/17 05:15 07/05/17 05:15 Labs: Laboratory Last Values WBC 8.0 K/mm3 (4.5-11.0) 07/05/17 05:15 RBC 4.96 M/mm3 (3.65-5.03) 07/05/17 05:15 Hgb 13.9 gm/dl (11.8-15.2) 07/05/17 05:15 Hct 43.4 % (35.5-45.6) 07/05/17 05:15 MCV 88 fl (84-94) 07/05/17 05:15 MCH 28 pg (28-32) 07/05/17 05:15 MCHC 32 % (32-34) 07/05/17 05:15 RDW 15.3 % (13.2-15.2) H 07/05/17 05:15 Plt Count 148 K/mm3 (140-440) 07/05/17 05:15 Lymph % (Auto) 30.8 % (13.4-35.0) 07/05/17 05:15 Hand % (Auto) 8.9 % (0.0-7.3) H 07/05/17 05:15 Eos % (Auto) 0.3 % (0.0-4.3) 07/05/17 05:15 Baso % (Auto) 0.3 % (0.0-1.8) 07/05/17 05:15 Lymph # 2.5 K/mm3 (1.2-5.4) 07/05/17 05:15 Hand # 0.7 K/mm3 (0.0-0.8) 07/05/17 05:15 Eos # 0.0 K/mm3 (0.0-0.4) 07/05/17 05:15 Baso # 0.0 K/mm3 (0.0-0.1) 07/05/17 05:15 Seg Neutrophils % 59.7 % (40.0-70.0) 07/05/17 05:15 Seg Neutrophils # 4.8 K/mm3 (1.8-7.7) 07/05/17 05:15 PT 15.4 Sec. (12.2-14.9) H 07/04/17 22:10 INR 1.23 (0.87-1.13) H 07/04/17 22:10 APTT 27.5 Sec. (24.2-36.6) 07/04/17 22:10 D-Dimer 439.67 ng/mlDDU (0-234) H 07/04/17 23:55 Sodium 144 mmol/L (137-145) 07/05/17 05:15 Potassium 4.4 mmol/L (3.6-5.0) 07/05/17 05:15 Chloride 104.1 mmol/L (98-107) 07/05/17 05:15 Carbon Dioxide 24 mmol/L (22-30) 07/05/17 05:15 Anion Gap 20 mmol/L 07/05/17 05:15 BUN 10 mg/dL (9-20) 07/05/17 05:15 Creatinine 1.1 mg/dL (0.8-1.5) 07/05/17 05:15 Estimated GFR > 60 ml/min 07/05/17 05:15 BUN/Creatinine Ratio 9.09 % 07/05/17 05:15 Glucose 89 mg/dL (75-100) 07/05/17 05:15 Calcium 9.4 mg/dL (8.4-10.2) 07/05/17 05:15 Total Bilirubin 0.30 mg/dL (0.1-1.2) 07/04/17 22:10 AST 59 units/L (5-40) H 07/04/17 22:10 ALT 39 units/L (7-56) 07/04/17 22:10 Alkaline Phosphatase 130 units/L (35-129) H 07/04/17 22:10 Total Creatine Kinase 155 units/L (55-170) 07/05/17 05:15 CK-MB (CK-2) 2.4 ng/mL (0.0-4.0) 07/05/17 05:15 CK-MB (CK-2) Rel Index 1.5 (0-4) 07/05/17 05:15 Troponin T < 0.010 ng/mL (0.00-0.029) 07/05/17 05:15 NT-Pro-B Natriuret Pep 1437 pg/mL (0-900) H 07/04/17 22:10 Total Protein 7.0 g/dL (6.3-8.2) 07/04/17 22:10 Albumin 4.3 g/dL (3.9-5) 07/04/17 22:10 Albumin/Globulin Ratio 1.6 % 07/04/17 22:10 TSH 1.240 mlU/mL (0.270-4.200) 07/04/17 23:55 Urine Color Yellow (Yellow) 07/04/17 Unknown Urine Turbidity Clear (Clear) 07/04/17 Unknown Urine pH 7.0 (5.0-7.0) 07/04/17 Unknown Ur Specific Chaplin 1.008 (1.003-1.030) 07/04/17 Unknown Urine Protein 30 mg/dl mg/dL (Negative) 07/04/17 Unknown Urine Glucose (UA) Neg mg/dL (Negative) 07/04/17 Unknown Urine Ketones Neg mg/dL (Negative) 07/04/17 Unknown Urine Blood Sm (Negative) 07/04/17 Unknown Urine Nitrite Neg (Negative) 07/04/17 Unknown Urine Bilirubin Neg (Negative) 07/04/17 Unknown Urine Urobilinogen < 2.0 mg/dL (<2.0) 07/04/17 Unknown Ur Leukocyte Esterase Tr (Negative) 07/04/17 Unknown Urine WBC (Auto) 6.0 /HPF (0.0-6.0) 07/04/17 Unknown Urine RBC (Auto) 10.0 /HPF (0.0-6.0) 07/04/17 Unknown U Epithel Cells (Auto) < 1.0 /HPF (0-13.0) 07/04/17 Unknown Urine Bacteria (Auto) 1+ /HPF (Negative) 07/04/17 Unknown Urine Mucus Few /HPF 07/04/17 Unknown Urine Opiates Screen Presumptive negative 07/04/17 Unknown Urine Methadone Screen Presumptive negative 07/04/17 Unknown Ur Barbiturates Screen Presumptive negative 07/04/17 Unknown Ur Phencyclidine Scrn Presumptive negative 07/04/17 Unknown Ur Amphetamines Screen Presumptive negative 07/04/17 Unknown U Benzodiazepines Scrn Presumptive negative 07/04/17 Unknown Urine Cocaine Screen Presumptive negative 07/04/17 Unknown U Marijuana (THC) Screen Presumptive negative 07/04/17 Unknown Drugs of Abuse Note Disclamer 07/04/17 Unknown - Imaging and Cardiology Chest x-ray: image reviewed (no acute findings)
[2017-07-05] MEDS ORDERED: HCTZ PO SCH (10:00)
[2017-07-05] MEDS ORDERED: LOPRESSOR PO SCH ×2 (10:00→10:59)
[2017-07-05] MEDS ORDERED: LOVENOX SUB-Q SCH ×3 (10:00→22:00)
[2017-07-05] MEDS ORDERED: LOPRESSOR IV ONE ×2 (10:50→10:51)
[2017-07-05] MEDS ORDERED: CARDIZEM IV ONE (10:54)
[2017-07-05] MEDS: DIOVAN PO SCH ×2 (11:07→22:04)
[2017-07-05] MEDS: ASPIRIN PO SCH (11:07)
[2017-07-05] MEDS: PERCOCET 5/325 PO PRN ×2 (11:15→20:27)
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
[2017-07-05] MEDS: LOPRESSOR PO SCH ×2 (12:00→22:04)
[2017-07-05] MEDS: TYLENOL PO PRN (15:02)
[2017-07-05] MEDS ORDERED: CORDARONE IV ONE (23:15)
[2017-07-06] MEDS: PERCOCET 5/325 PO PRN (07:32)
[2017-07-06] MEDS: LOPRESSOR PO SCH (09:09)
[2017-07-06] MEDS: DIOVAN PO SCH (09:09)
--- NOTE | 2017-07-06 10:13 | Discharge Summary ---
Providers - Providers Date of Admission: 07/04/17 23:34 Attending physician: JALIL CABEZAS MD Primary care physician: ROOF [employer]TING [employer]ER Hospitalization Condition: Stable Hospital course: 67-year-old man with a history of hypertension, A. fib, dementia was brought to the emergency room because of palpitations and associated with chest pain. In the emergency room was found to be in SVT SVT/Afib with RVR He received IV adenosine and then IV metoprolol and was converted to oral metoprolol after which his rate was controlled. This patient was co-managed by cardiology. He was on eliquis for stroke prophylaxis at home, however was held as he is getting EP study the day after discharge. Patient has had a long history of paroxysmal atrial fibrillation, and he is planned for EP study and ablation on 07/07/2017 at [facility], the plan is to stabilize the patient that he can keep this appointment. Therefore eliquis on hold for procedure HTN urgency Optimized medications Dementia received Supportive care Disposition: DC-01 TO HOME OR SELFCARE Time spent for discharge: 33 minutes Core Measure Documentation - Palliative Care Palliative Care/ Comfort Measures: Not Applicable - Core Measures Any of the following diagnoses?: none Exam - Physical Exam Narrative exam: General: Patient appears well in no distress HEENT: MMM, EOMI cardiac: S1-S2 heard lungs: clear to auscultation, abdomen: soft, nontender, nondistended bowel sounds positive extremities: no edema clubbing or cyanosis Skin: no rash or lesion Neuro: no focal deficit Psych: appropriate behavior and mood, cognitive impairments - Constitutional Vitals: Temp Pulse Resp BP Pulse Ox 98.1 F 85 18 146/93 99 07/06/17 04:00 07/06/17 09:09 07/06/17 07:32 07/06/17 04:00 07/06/17 04:00 Plan Follow up with: TASHI MARTINS MD [Staff Physician] - 7 Days PRIMARY CAREMD [Primary Care Provider] - 3-5 Days Prescriptions: Metoprolol [Lopressor TAB] 50 mg PO BID #60 tablet Valsartan [Diovan] 160 mg PO BID #60 tablet
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
[2017-07-06] MEDS: TYLENOL PO PRN (12:46)
[2017-07-06] MEDS ORDERED: PERCOCET 5/325 PO ONE (14:00)
[2017-07-06] MEDS ORDERED: CATAPRES PO ONE (14:30)
[2017-07-06 15:39] VITALS: BP 146/103
--- NOTE | 2017-07-11 08:42 | Query-Hypercoagulopathy ---
Dear Drake Date:____07/11/17 Construction Executive/CDS:__Lalita/ Derick Phone#:____[phone] Exercise your independent professional judgment when responding to query. Questions asked do not imply a particular answer is desired or expected. We greatly appreciate your clarification on this issue. Clinical Documentation States: 67 year old male was admitted on 07/04/17. The Discharge summary (Dr. Juan) states " SVT/Afib with RVR He received IV adenosine and then IV metoprolol and was converted to oral metoprolol after which his rate was controlled. HTN urgency Optimized medications Patient has had a long history of paroxysmal atrial fibrillation " Clinical Findings Show: [x ] D-Dimer 439.67, [ x] INR; 1.23, [ x] PT: 15.4 [x ] Anticoagulation Medications: Apixaban, Enoxaparin Please clarify if the patient has any of the following condition/s: [ ] Primary Hypercoagulopathy due to: [ ] Factor V Leiden [ ] Protein C/S deficiency [ ] Prothrombin G 35432L (Factor II mutation) [ ] Antithrombin III (AT III) deficiency [ ] Sickle cell anemia and other hemolytic anemias [ ] Lupus anticoagulant [ ] Unable to determine [ ] Secondary Hypercoagulopathy due to: [ ] Advanced age [ ] Atrial Fibrillation [ ] Diabetic Ketoacidosis (DKA) [ ] [ ] Oral contraceptives [ ] Hormonal replacement use [ ] Heparin Induced Thrombocytopenia (HIT) [ ] Severe Nephrotic Syndrome (Albumin < 2.5g/dl) [ ] Unable to determine [ x] Other: DUE TO ELIQUIS [ ] Comment/Explanation: Present on admission: [x ] Yes (Y) [ ] Clinically undeterminable (W) [ ] No (N) Please also document response in your Progress Notes and/or Discharge Summary and indicate if the condition was present on admission. MTDD
== END 2017-07-06 17:33 | disposition home or self-care (01) | DRG 310 ==
LOC: ED 21:13 → 4A 23:34
PROVIDERS: ADMIT Internal Medicine; ATTEND Internal Medicine
DX: I48.92 Unspecified atrial flutter (principal); I48.91 Unspecified atrial fibrillation; I47.1 Supraventricular tachycardia; F03.90 Unspecified dementia, unspecified severity, without behavioral disturbance, psychotic disturbance, mood disturbance, and anxiety; I16.0 Hypertensive urgency; F17.210 Nicotine dependence, cigarettes, uncomplicated; I10 Essential (primary) hypertension; Z87.828 Personal history of other (healed) physical injury and trauma; Z82.49 Family history of ischemic heart disease and other diseases of the circulatory system; T45.515A Adverse effect of anticoagulants, initial encounter
CPT/HCPCS: 36415; 71010; 80048; 80053; 80307; 81001; 82550; 82553; 82962; 83735; 83880; 84443; 84484; 85025; 85379; 85610; 85730; 93005; 93010; 94760; 96374; 99406; J0153; J0282; J0360; J1650; J7030

== ENCOUNTER 2017-11-08 12:15 | Emergency (ER) | payer MEDICARE ==
[2017-11-08 13:19] LABS: Eosinophils % (Auto) 1.6 % (0.0-4.3)
[2017-11-08 13:29] LABS: INR 1.14 (0.87-1.13)
[2017-11-08 13:30] LABS: Partial Thromboplastin Time 29.2 Sec. (24.2-36.6)
[2017-11-08 13:31] LABS: Hematocrit 45.5 % (35.5-45.6); Hemoglobin 14.7 gm/dl (11.8-15.2); Mean Corpuscular Volume 87 fl (84-94); Red Blood Count 5.24 M/mm3 (3.65-5.03); White Blood Count 5.7 K/mm3 (4.5-11.0)
[2017-11-08 13:32] LABS: Anion Gap 19 mmol/L; BUN/Creatinine Ratio 10; Basophils % (Auto) 0.6 % (0.0-1.8); Blood Urea Nitrogen 13 mg/dL (9-20); Carbon Dioxide 29 mmol/L (22-30); Chloride 99.2 mmol/L (98-107); Glucose 105 mg/dL (75-100); Mean Corpuscular HGB Conc 32 % (32-34); Mean Corpuscular Hemoglobin 28 pg (28-32); Platelet Count 115 K/mm3 (140-440); Potassium 5.2 mmol/L (3.6-5.0); Red Cell Distribution Width 15.4 % (13.2-15.2); Sodium 142 mmol/L (137-145)
--- NOTE | 2017-11-08 13:38 | Emergency Department Report ---
Chief Complaint: Chest Pain Stated Complaint: CHEST PAIN Time Seen by Provider: 11/08/17 13:34 - HPI History of Present Illness: 67-year-old male presents to ED complaining of mid, pressure, squeezing-type chest pain localized to his mid region times today. Patient states pain is getting a bit worse. He denies fevers/chills/shortness of breath/nausea/ vomiting/abdominal pain. - ROS Review of Systems: As noted in HPI - Exam Vital Signs: Vital Signs 11/08/17 12:34 Temperature 97.5 F L Pulse Rate 47 L Respiratory 18 Rate Blood Pressure 137/87 O2 Sat by Pulse 97 Oximetry Physical Exam: GENERAL: Alert and oriented x3, no apparent distress, Normal Gait, atraumatic. LUNGS: Symetrical with respiration, No wheezing, no rales or crackles, CTAB. HEART: S1, S2 present, regular rate and rhythm without murmur. Non tender to palpation MSE screening note: Focused history and physical exam performed. Due to findings the following was ordered: ED Medical Decision Making - Lab Data Result diagrams: 11/08/17 12:45 11/08/17 12:45 - Medical Decision Making Labs chest protocol ordered. EKG ordered. She is to show sinus bradycardia Patient service and by ED physician. ED Disposition for MSE Condition: Stable
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
--- NOTE | 2017-11-08 22:49 | XRay Report ---
FINAL REPORT PROCEDURE: XR CHEST ROUTINE 2V TECHNIQUE: PA and lateral chest radiographs were obtained. CPT 61434 HISTORY: cp COMPARISON: 09/17/2015 FINDINGS: Heart: Normal. Mediastinum/Vessels: Sternal sutures are identified.. Lungs/Pleural space: Lungs are emphysematous with the bullous changes in the upper lobes. There are no confluent infiltrates or mass lesions. A small calcified granuloma is noted in the left upper lobe pleural spaces are clear.. Bony thorax: No acute osseous abnormality. Other: IMPRESSION: Bullous emphysema No acute pulmonary process.
[2017-11-08 23:22] VITALS: BP 132/81
== END 2017-11-08 23:25 | disposition home or self-care (01) ==
LOC: ED 12:15
DX: R07.2 Precordial pain (principal); I10 Essential (primary) hypertension; I48.91 Unspecified atrial fibrillation; F17.200 Nicotine dependence, unspecified, uncomplicated; F03.90 Unspecified dementia, unspecified severity, without behavioral disturbance, psychotic disturbance, mood disturbance, and anxiety
CPT/HCPCS: 36415; 71020; 80048; 84484; 85025; 85610; 85730; 93005; 93010